=== PATIENT | male | born 1965 | race Caucasian/White ===

== ENCOUNTER 2018-05-06 12:32 | Emergency (ER) | payer OTHER ==
[~2018-05-06] VITALS: Ht 182.9 cm; Wt 99.3 kg
[2018-05-06 12:40] VITALS: BP 125/83
[2018-05-06] MEDS ORDERED: XANAX 0.5 MG0.5 MG PO (12:46)
[2018-05-06] MEDS ORDERED: SERTRALINE HCL50 MG PO (12:47)
[2018-05-06] MEDS ORDERED: ATENOLOL 50MG T50 M1 PO (12:48)
[2018-05-06] MEDS ORDERED: ZETIA10 MG PO (12:48)
== END 2018-05-06 18:23 | disposition home or self-care (01) ==
LOC: ER 12:32
DX: F41.1 Generalized anxiety disorder (principal); I25.2 Old myocardial infarction; G80.9 Cerebral palsy, unspecified